=== PATIENT | female | born 1965 | race Caucasian/White ===

== ENCOUNTER 2016-12-30 09:46 | Emergency (ER) | payer BC ==
[2016-12-30 12:36] VITALS: BP 112/66
--- NOTE | 2016-12-30 12:36 | UC ---
Throat Pain/Nasal Dwight HPI - HPI Summary HPI Summary: SINUS CONGESTION SORE THROAT COUGH FOR TEN DAYS. NO FEVER. - History of Current Complaint Chief Complaint: UCRespiratory Stated Complaint: SINUSES Time Seen by Provider: 12/30/16 11:25 Hx Obtained From: Patient Hx Last Menstrual Period: 12/23/15 ?: Yes Onset/Duration: Sudden Onset, Lasting Weeks, Still Present Severity: Moderate Cough: Nonproductive Associated Signs & Symptoms: Positive: Sinus Discomfort, Nasal Discharge. Negative: Fever - Epiglottits Risk Factors Epiglottis Risk Factors: Negative - Allergies/Home Medications Allergies/Adverse Reactions: Allergies Allergy/AdvReac Type Severity Reaction Status Date / Time No Known Allergies Allergy Verified 12/30/16 12:01 Home Medications: Home Medications Pantoprazole Sodium [Protonix] 20 mg PO DAILY 12/30/16 [History Confirmed ] PMH/Surg Hx/FS Hx/Imm Hx Previously Healthy: Yes Endocrine History Of: Denies: Diabetes Cardiovascular History Of: Denies: Cardiac Disorders, Hypertension Respiratory History Of: Denies: Asthma - Surgical History Surgical History: Yes Surgery Procedure, Year, and Place: 2 c-sections, gallbladder, gastric bypass 2000 - Family History Known Family History: Negative: Respiratory Disease - Social History Occupation: Employed Full-time Alcohol Use: None Substance Use Type: None Smoking Status (MU): Never Smoked Tobacco - Immunization History Most Recent Influenza Vaccination: FALL 2015 Review of Systems Constitutional: Negative Skin: Negative ENT: Sore Throat, Nasal Discharge Respiratory: Cough Cardiovascular: Negative Gastrointestinal: Negative Genitourinary: Negative Motor: Negative Neurovascular: Negative Musculoskeletal: Negative Neurological: Negative Psychological: Negative All Other Systems Reviewed And Are Negative: Yes Physical Exam Triage Information Reviewed: Yes Appearance: Well-Appearing, No Pain Distress Vital Signs: Initial Vital Signs Temp 97.8 F 12/30/16 12:03 Pulse 63 12/30/16 12:03 Resp 18 12/30/16 12:03 BP 112/66 12/30/16 12:03 Pulse Ox 100 12/30/16 12:03 Vital Signs Reviewed: Yes Eye Exam: Normal ENT: Positive: Pharynx normal, TM bulging, TM dull Dental Exam: Normal Neck exam: Normal Neck: Positive: Supple, Nontender, No Lymphadenopathy Respiratory Exam: Normal Respiratory: Positive: Chest non-tender, Lungs clear, Normal breath sounds, No respiratory distress, No accessory muscle use Cardiovascular Exam: Normal Cardiovascular: Positive: RRR, No Murmur, Pulses Normal Abdominal Exam: Normal Abdomen Description: Positive: Nontender, No Organomegaly Musculoskeletal Exam: Normal Neurological Exam: Normal Psychological Exam: Normal Psychological: Positive: Normal Response To Family Skin Exam: Normal Throat Pain/Nasal Course/Dx - Differential Dx/Diagnosis Differential Diagnosis/HQI/PQRI: Influenza, Laryngitis, Sinusitis, Tonsillitis Provider Diagnoses: SINUSITIS. BRONCHITIS Discharge - Discharge Plan Condition: Stable Disposition: HOME Prescriptions: DOXYcycline CAP(*) [DOXYcycline 100MG CAP(*)] 100 mg PO BID #20 cap Guaifenesin-Codeine [Guaiatussin AC] 5 ml PO Q6H PRN #100 ml MDD 20 mL PRN Reason: Cough Patient Education Materials: Sinusitis (ED) Referrals: Lucy Acevedo MD [Primary Care Provider] -
== END 2016-12-30 12:38 | disposition home or self-care (01) ==
LOC: UCCORT 09:46
DX: J32.9 Chronic sinusitis, unspecified (principal); J40 Bronchitis, not specified as acute or chronic
CPT/HCPCS: 99212; G0463

== ENCOUNTER 2017-05-09 14:32 | Emergency (ER) | payer BC ==
--- NOTE | 2017-05-09 14:47 | UC ---
Throat Pain/Nasal Dwight HPI - HPI Summary HPI Summary: 52 [address] x 4 days. No fever. Hx sinusitis and allergies requiring prednisone and ENT in the past. - History of Current Complaint Stated Complaint: SORE THROAT Time Seen by Provider: 05/09/17 14:46 Hx Obtained From: Patient Hx Last Menstrual Period: 01/10/15 ?: No Onset/Duration: Gradual Onset, Lasting Days, Still Present Severity: Moderate Pain Intensity: 4 Pain Scale Used: 0-10 Numeric Cough: None Associated Signs & Symptoms: Positive: Dysphagia, Sinus Discomfort, Nasal Discharge. Negative: Wheezing, Hoarseness, Fever, Vomiting, Rash Related History: Seasonal Allergies - Epiglottits Risk Factors Epiglottis Risk Factors: Negative - Allergies/Home Medications Allergies/Adverse Reactions: Allergies Allergy/AdvReac Type Severity Reaction Status Date / Time No Known Allergies Allergy Verified 05/09/17 15:17 PMH/Surg Hx/FS Hx/Imm Hx Previously Healthy: Yes GI/ History: Gastroesophageal Reflux - Surgical History Surgical History: Yes Surgery Procedure, Year, and Place: 2 c-sections, gallbladder, gastric bypass 2000 - Family History Known Family History: Positive: Cardiac Disease - CHF, [place] Negative: Respiratory Disease - Social History Occupation: Employed Full-time Lives: With Family Alcohol Use: None Substance Use Type: None Smoking Status (MU): Never Smoked Tobacco - Immunization History Most Recent Influenza Vaccination: 2012 Review of Systems Constitutional: Negative Skin: Negative Eyes: Negative ENT: Sore Throat, Nasal Discharge, Other - sinus pressure, dizzy, teeth ache Respiratory: Negative Cardiovascular: Negative Gastrointestinal: Negative Genitourinary: Negative Motor: Negative Neurovascular: Negative Musculoskeletal: Negative Neurological: Negative Psychological: Negative All Other Systems Reviewed And Are Negative: Yes Physical Exam Triage Information Reviewed: Yes Appearance: Well-Appearing, Well-Nourished, Pain Distress Vital Signs: elevated BP noted Vital Signs Reviewed: Yes Eyes: Positive: Conjunctiva Clear ENT: Positive: Hearing grossly normal, Pharyngeal erythema, Nasal congestion, TMs normal, Other: - bilateral maxillary sinus tenderness. Negative: Tonsillar swelling, Tonsillar exudate, Muffled/hoarse voice Neck: Positive: Supple, Nontender, No Lymphadenopathy Respiratory: Positive: Lungs clear, Normal breath sounds, No respiratory distress Cardiovascular: Positive: RRR, No Murmur, Pulses Normal, Brisk Capillary Refill Musculoskeletal: Positive: Strength Intact, ROM Intact Neurological: Positive: Alert, Muscle Tone Normal Psychological Exam: Normal Skin Exam: Normal Throat Pain/Nasal Course/Dx - Course Course Of Treatment: rapid A neg - Differential Dx/Diagnosis Differential Diagnosis/HQI/PQRI: Pharyngitis, Sinusitis, URI Provider Diagnoses: acute sinusitis Discharge - Discharge Plan Condition: Stable Disposition: HOME Prescriptions: Azithromycin TAB* [Zithromax TAB (Z-CORINNE) 250 mg #6 tabs] 2 tab PO .TODAY, THEN 1 DAILY #1 corinne Fluconazole [Diflucan 150 MG (NF)] 150 mg PO ONCE #2 tab Pantoprazole Sodium [Protonix] 20 mg PO DAILY #30 mg Pseudoephedrine HCL ER TAB* [Sudafed 12 Hour*] 120 mg PO BID #20 tab.er Patient Education Materials: Sinusitis (ED) Referrals: No Primary Care Phys,NOPCP [Primary Care Provider] - [facility] [place] [facility] [place]] - As Soon As Possible
[2017-05-09 15:25] VITALS: BP 139/71
== END 2017-05-09 15:52 | disposition home or self-care (01) ==
LOC: UCCORT 14:32
DX: J01.90 Acute sinusitis, unspecified (principal)
CPT/HCPCS: 87651; 99212; G0463

== ENCOUNTER 2017-05-31 17:40 | Emergency (ER) | payer BC, OTHER ==
--- NOTE | 2017-05-31 17:57 | UC ---
Cardiac HPI - HPI Summary HPI Summary: "PALPATATIONS , ONSET ABOUT 30 MINS AGO. FELT LIGHTHEADED AND DIZZY WHILE DRIVING. FELT LIKE HEART WAS POUNDING. LEFT ARM PAIN - "ACHEY". HAS BEEN TAKING SUDAFED FOR A SINUS INFECTION TWO WEEKS AGO." Feels heaviness over left chest radiating into left shoulder. Denies SOB, n/v/ sob or perspiration. non-smoker. denies DM, lipids or HTN. takes protonic for gerd with goo relief. Did not take any sudafed today. Heart was racing, but not while she is here. She felt dizziness and everything was going black on her. Pain is 2/10 currently. her 2 kids are in waiting room. she drove herself. - History of Current Complaint Chief Complaint: UCChestPain Stated Complaint: CHEST PAIN Time Seen by Provider: 05/31/17 17:45 - Allergy/Home Medications Allergies/Adverse Reactions: Allergies Allergy/AdvReac Type Severity Reaction Status Date / Time No Known Allergies Allergy Verified 05/31/17 17:44 PMH/Surg Hx/FS Hx/Imm Hx Previously Healthy: Yes GI/ History: Gastroesophageal Reflux - Surgical History Surgical History: Yes Surgery Procedure, Year, and Place: 2 c-sections, gallbladder, gastric bypass 2000 - Family History Known Family History: Positive: Cardiac Disease - CHF, [place] - both parents d/t CAD, smokers Negative: Respiratory Disease - Social History Alcohol Use: None Substance Use Type: None Smoking Status (MU): Never Smoked Tobacco - Immunization History Most Recent Influenza Vaccination: 2012 Review of Systems Constitutional: Negative Skin: Negative Eyes: Negative ENT: Negative Respiratory: Negative Cardiovascular: Palpitations, Chest Pain Gastrointestinal: Negative Genitourinary: Negative Motor: Negative Neurovascular: Negative Musculoskeletal: Negative Neurological: Other - dizziness Psychological: Negative All Other Systems Reviewed And Are Negative: Yes Physical Exam Triage Information Reviewed: Yes Appearance: Well-Nourished - appears nervous and mildly ill Vital Signs: Initial Vital Signs Temp 98.4 F 05/31/17 17:48 Pulse 110 05/31/17 17:48 Resp 20 05/31/17 17:48 BP 140/85 05/31/17 17:48 Pulse Ox 100 05/31/17 17:48 Eye Exam: Normal ENT Exam: Normal ENT: Positive: Hearing grossly normal, Pharynx normal, TMs normal Dental Exam: Normal Neck exam: Normal Neck: Positive: Supple, Nontender, No Lymphadenopathy Respiratory Exam: Normal Respiratory: Positive: Lungs clear, Normal breath sounds, No respiratory distress, No accessory muscle use. Negative: Crackles, Rhonchi, Stridor, Wheezing Cardiovascular: Positive: RRR, No Murmur, Pulses Normal, Tachycardia Abdominal Exam: Normal Abdomen Description: Positive: Nontender, Soft Musculoskeletal Exam: Normal Neurological Exam: Normal Psychological Exam: Normal Skin Exam: Normal - Assessment/Plan Course Of Treatment: EKG - sinus tachy, nml axis, no AV/IV changes, no ST/T changes. ASA 324mgs chewable given. IV started. 911 ALS - Differential Diagnoses - Chest Pain Differential Diagnosis/HQI/PQRI: Acute DC, ACS, Aortic Aneurysm, CHF, Chest Wall , Pulmonary Embolism, Other: - arrhythmia - Differential Diagnoses - Hypertension Differential Diagnosis/HQI PQRI: AAA - Clinical Impression Provider Diagnoses: chest pain, palpitations, pre-syncope, tachycardia - Physician Notifications Discussed Patient Care With: Dr Lozano Time Discussed With Above Provider: 16:05 Discharge - Discharge Plan Condition: Fair Disposition: TRANS HIGHER LVL OF CARE FAC
[2017-05-31] MEDS ORDERED: Aspirin Low Dose CHEW TAB* 81 MG PO ONE (18:08)
[2017-05-31 18:28] VITALS: BP 145/89
== END 2017-05-31 18:20 | disposition short-term general hospital (02) ==
LOC: UCCORT 17:40
DX: R07.9 Chest pain, unspecified (principal); R00.2 Palpitations; R55 Syncope and collapse; R00.0 Tachycardia, unspecified
CPT/HCPCS: 93005; 99213; A9270-GY; G0463

== ENCOUNTER 2019-04-19 11:30 | Emergency (ER) | payer BC, OTHER ==
[2019-04-19 11:48] VITALS: BP 130/74
--- NOTE | 2019-04-19 14:11 | UC ---
Respiratory Complaint HPI - HPI Summary HPI Summary: 1 WEEK OF BILATERAL EAR PAIN, SINUS CONGESTION, POSTNASAL DRAINAGE, COUGH AND FATIGUE. NO FEVER, NAUSEA/VOMITING. FEELS LIKE SHE HAS A LUMP IN HER THROAT BUT STATES SHE HAS RUN OUT OF HER REFLUX MEDICATION. SHE HAS A HISTORY OF ALLERGIES AND TAKES CLARITIN-D OCCASIONALLY BUT STATES SHE TRIES NOT TO TAKE IT REGULARLY BECAUSE IT GIVES HER HEART PALPITATIONS. - History of Current Complaint Chief Complaint: UCGeneralIllness Stated Complaint: L EAR PAIN,COUGH,POST NASAL Time Seen by Provider: 04/19/19 11:52 Hx Obtained From: Patient Hx Last Menstrual Period: N/A Onset/Duration: Gradual Onset, Lasting Days, Still Present Timing: Constant Severity Initially: Moderate Severity Currently: Moderate Pain Intensity: 4 Pain Scale Used: 0-10 Numeric Character: Cough: Nonproductive Aggravating Factors: Allergens Alleviating Factors: Nothing Associated Signs And Symptoms: Positive: Nasal Congestion, Sinus Discomfort. Negative: Dyspnea, Fever, Chills, Wheezing - Allergies/Home Medications Allergies/Adverse Reactions: Allergies Allergy/AdvReac Type Severity Reaction Status Date / Time No Known Allergies Allergy Verified 04/19/19 11:48 PMH/Surg Hx/FS Hx/Imm Hx - Additional Past Medical History Additional PMH: ALLERGIES GI/ History: Gastroesophageal Reflux - Surgical History Surgical History: Yes Surgery Procedure, Year, and Place: 2 c-sections, gallbladder, gastric bypass 2000, Tubal Ligation 2008 - Family History Known Family History: Positive: Cardiac Disease - CHF, [place] - both parents d/t CAD, smokers, Non-Contributory Negative: Respiratory Disease - Social History Alcohol Use: Rare Substance Use Type: None Smoking Status (MU): Never Smoked Tobacco - Immunization History Most Recent Influenza Vaccination: 2012 Review of Systems All Other Systems Reviewed And Are Negative: Yes Constitutional: Positive: Fatigue ENT: Positive: Ear Ache, Nasal Discharge, Sinus Congestion Respiratory: Positive: Cough Cardiovascular: Positive: Negative Gastrointestinal: Positive: Negative Physical Exam Triage Information Reviewed: Yes Appearance: Well-Appearing, No Pain Distress, Well-Nourished Vital Signs: Initial Vital Signs Temp 97.9 F 04/19/19 11:45 Pulse 79 04/19/19 11:45 Resp 17 04/19/19 11:45 BP 130/74 04/19/19 11:45 Pulse Ox 100 04/19/19 11:45 Vital Signs Reviewed: Yes Eyes: Positive: Conjunctiva Clear ENT: Positive: Hearing grossly normal, Pharynx normal, TMs normal Neck: Positive: Supple, Nontender, No Lymphadenopathy Respiratory Exam: Normal Cardiovascular Exam: Normal Abdomen Description: Positive: Soft Musculoskeletal: Positive: No Edema Neurological: Positive: Alert Psychological: Positive: Age Appropriate Behavior Skin: Negative: Rashes Respiratory Course/Dx - Differential Dx/Diagnosis Provider Diagnosis: Acute URI, Allergic rhinitis Discharge - Sign-Out/Discharge Documenting (check all that apply): Patient Departure All imaging exams completed and their final reports reviewed: No Studies - Discharge Plan Condition: Stable Disposition: HOME Prescriptions: Fluticasone NASAL SPRAY 50MCG* [Flonase NASAL SPRAY 50MCG*] 2 spray BOTH NARES DAILY #1 btl Pantoprazole TAB * [Protonix TAB*] 40 mg PO DAILY #30 tab predniSONE TAB* [Deltasone 20 MG TAB*] 40 mg PO DAILY #10 tab Patient Education Materials: Upper Respiratory Infection (ED), Allergic Rhinitis (ED), Postnasal Drip (DC) Referrals: Halina Fenton MD [Primary Care Provider] - If Needed Additional Instructions: YOUR SYMPTOMS ARE LIKELY VIRALLY/ALLERGICALLY MEDIATED AND SHOULD RESOLVE ON THEIR OWN WITH TIME. NO INDICATION FOR ANTIBIOTICS AT PRESENT. REST, HYDRATE, OTC MEDS NEEDED. WILL TREAT WITH PREDNISONE TO HELP WITH AIRWAY INFLAMMATION AND ALLERGY SYMPTOMS. TAKE REGULAR ANTIHISTAMINE DAILY. FLONASE FOR NASAL DECONGESTANT. PPI REFILLED. IF YOUR SENSATION OF A LUMP IN YOUR THROAT DOES NOT RESOLVE CONSIDER ENT EVALUATION. SEEK FOLLOW-UP IF YOU ARE NOT IMPROVING OVER THE NEXT 1-2 WEEKS. - Billing Disposition and Condition Condition: STABLE Disposition: Home
== END 2019-04-19 12:21 | disposition home or self-care (01) ==
LOC: UCCORT 11:30
DX: J06.9 Acute upper respiratory infection, unspecified (principal); J30.9 Allergic rhinitis, unspecified; H92.03 Otalgia, bilateral; K21.9 Gastro-esophageal reflux disease without esophagitis
CPT/HCPCS: 99212; G0463

== ENCOUNTER 2019-10-12 09:07 | Emergency (ER) | payer BC, OTHER ==
[2019-10-12 09:11] VITALS: BP 137/79
[2019-10-12] MEDS ORDERED: Cephalexin CAP* 500 MG PO ONE (09:40)
--- NOTE | 2019-10-12 10:15 | ED ---
Upper Extremity Pain - HPI Summary HPI Summary: Patient is a 54-year-old female who presents emergency department for redness and pain to second digit of left hand. Patient states she had a manicure done at a salon yesterday. Patient states when she woke up this morning she noticed her second digit of left hand was red and swollen with mild redness upper arm. Denies any other injuries. Denies fever, chills. No significant past medical history. Symptoms are mild in severity. Touching area makes symptoms worse. Rest makes symptoms better. - History of Current Complaint Chief Complaint: EDExtremityUpper Stated Complaint: SWOLLEN INDEX FINGER WITH STREAKING PER PT Time Seen by Provider: 10/12/19 09:19 Hx Obtained From: Patient Hx Last Menstrual Period: N/A - Allergies/Home Medications Allergies/Adverse Reactions: Allergies Allergy/AdvReac Type Severity Reaction Status Date / Time No Known Allergies Allergy Verified 10/12/19 09:11 PMH/Surg Hx/FS Hx/Imm Hx Previously Healthy: Yes Endocrine/Hematology History: Denies: Hx Diabetes Cardiovascular History: Denies: Hx Hypertension Respiratory History: Denies: Hx Asthma - Cancer History Hx Chemotherapy: No Hx Radiation Therapy: No - Surgical History Surgery Procedure, Year, and Place: 2 c-sections, gallbladder, gastric bypass 2000, Tubal Ligation 2008 Infectious Disease History: No Infectious Disease History: Reports: Hx Clostridium Difficile - 2008 Denies: Traveled Outside the [place] in Last 30 Days - Family History Known Family History: Positive: Cardiac Disease - CHF, [place] - both parents d/t CAD, smokers, Non-Contributory Negative: Respiratory Disease - Social History Occupation: Employed Full-time Lives: With Family Alcohol Use: Rare Substance Use Type: Reports: None Smoking Status (MU): Never Smoked Tobacco Review of Systems Constitutional: Negative Negative: Fever, Chills Positive: Other - redness and swelling to left second digit of hand All Other Systems Reviewed And Are Negative: Yes Physical Exam Triage Information Reviewed: Yes Vital Signs On Initial Exam: Initial Vitals Temp Pulse Resp BP Pulse Ox 98.3 F 81 16 137/79 100 10/12/19 09:09 10/12/19 09:09 10/12/19 09:09 10/12/19 09:09 10/12/19 09:09 Vital Signs Reviewed: Yes Appearance: Positive: Well-Appearing - Patient sitting in agreement no acute distress. Skin: Positive: Warm, Dry Head/Face: Positive: Normal Head/Face Inspection Eyes: Positive: Normal, EOMI Neck: Positive: Supple Musculoskeletal: Positive: Other - Faint erythema, warmth and swelling to left second digit of hand. No area of induration or fluctuance. Very faint erythema to forearm. Patient has almost full range of motion with flexion and extension of digit that is slightly limited secondary to edema. There is no significant tenderness to the digit/tendons. Neurological: Positive: Normal, CN Intact II-III Procedures - Sedation Patient Received Moderate/Deep Sedation with Procedure: No Diagnostics - Vital Signs Vital Signs Temp Pulse Resp BP Pulse Ox 10/12/19 09:09 98.3 F 81 16 137/79 100 - Laboratory Lab Statement: Any lab studies that have been ordered have been reviewed, and results considered in the medical decision making process. Course/Dx - Course Course Of Treatment: Patient with cellulitis to finger after having a manicure done. Suspect staph infection. We'll place patient on Keflex 4 times a day. Advised her to elevate finger and warm compresses. Advised follow-up with PCP in 2-3 days for wound check. Patient given return precautions and is to return to the ER for fever, increased swelling, redness, pain, inability to move digit. Patient understands and agrees with plan. - Diagnoses Differential Diagnosis/HQI/PQRI: Positive: Hematoma, Strain, Sprain Provider Diagnoses: Cellulitis of finger Discharge ED - Sign-Out/Discharge Documenting (check all that apply): Patient Departure - Discharge Plan Condition: Good Disposition: HOME Prescriptions: Cephalexin CAP* [Keflex CAP*] 500 mg PO QID #39 cap Fluconazole 150 MG TAB* [Diflucan 150 MG TAB*] 150 mg PO ONCE #2 tablet Patient Education Materials: Cellulitis (ED) Referrals: Halina Fenton MD [Primary Care Provider] - Additional Instructions: Follow up with PCP in 2-3 days for wound check Take antibiotic as directed Elevate finger and apply warm compresses 3 x a day Return to ER for increased redness, pain, inability to bend/straighten finger, or if concerned - Billing Disposition and Condition Condition: GOOD Disposition: Home
== END 2019-10-12 10:10 | disposition home or self-care (01) ==
LOC: ED 09:07
DX: L03.012 Cellulitis of left finger (principal); Z98.84 Bariatric surgery status; Z98.51 Tubal ligation status
CPT/HCPCS: 99282; A9270-GY